=== PATIENT | female | born 1965 ===

== ENCOUNTER 2019-03-15 07:26 | Day surgery (SDC) | payer OTHER ==
[2019-03-13 11:20] VITALS: BMI 43.0
--- NOTE | 2019-03-15 08:33 | HP ---
Satellite [facility] - Chief Complaint Chief Complaint: right hand pain, numbness, weakness History of Present Illness: right CTS and Cubital Tunnel Syndrome History Source: Patient Limitations to Obtaining History: No Limitations - Past Medical History Allergies/Adverse Reactions: Allergies Allergy/AdvReac Type Severity Reaction Status Date / Time aspirin Allergy Severe ANAPHYLACTI Verified 03/15/19 08:28 C Penicillins Allergy Severe ANAPHYLACTI Verified 03/15/19 08:28 C Sulfa (Sulfonamide Allergy Intermediate Hives Verified 03/15/19 08:28 Antibiotics) NUTS Allergy Severe ANAPHYLACTI Uncoded 03/15/19 08:28 C ...LMP: 02/22/19 - Current Medications Current Medications: Home Medications Medication Instructions Recorded Albuterol Sulfate [Albuterol 8.5 gm IH PRN 03/13/19 Sulfate Hfa] Ergocalciferol [Vitamin D2] 50,000 unit PO WEEKLY 03/13/19 Ferrous Sulfate [Slow Fe] 142 mg PO DAILY 03/13/19 Satellite Physical Exam - Physical Examination Vital Signs: Vital Signs Period Temp Pulse Resp BP Sys/Russell Pulse Ox Last 24 Hr 98.0 F 79 20 142/77 97 General Appearance: Well Nourished ENT: Clear Lung: Clear to auscultation Heart: Regular rate & rhythm Breasts: Soft Abdomen: Soft Extremities: No edema Satellite Impression/Plan - Impression/Plan Impression: right CTS and Cubital Tunnel Syndrome Operative Procedure: right CTR and Subcutaneous Ulnar Nerve Transposition Date to be Performed: 03/15/19
[2019-03-15] MEDS ORDERED: ROPIVACAINE HCL 0.5% 30ML VIAL ONE (09:01)
[2019-03-15] MEDS ORDERED: DEXAMETHASONE SOD PHOSPHATE/PF 10 MG/ML SDV ONE (09:01)
[2019-03-15] MEDS ORDERED: MIDAZOLAM HCL 2 MG/2 ML SINGLE DOSE VIAL ONE ×2 (09:02)
[2019-03-15] MEDS ORDERED: BUPIVACAINE HCL/PF 0.5% (5 MG/ML) 30 ML VIAL IJ ONE (09:42)
[2019-03-15] MEDS ORDERED: LIDOCAINE HCL 1%, 10 MG/ML (20ML VIAL) ONE (09:42)
[2019-03-15] MEDS ORDERED: PROPOFOL 20 ML ONE (09:47)
[2019-03-15] MEDS ORDERED: LIDOCAINE HCL/PF 2% SDV 5ML VIAL ONE (09:48)
[2019-03-15] MEDS ORDERED: DEXAMETHASONE SOD PHOSPHATE 4 MG/1 ML VIAL ONE (09:48)
[2019-03-15] MEDS ORDERED: CLINDAMYCIN PHOSPHATE 600 MG/4 ML VIAL IVPB ONE (10:09)
[2019-03-15] MEDS ORDERED: oxyCODONE HCL 5 MG TABLET PO PRN (11:17)
[2019-03-15] MEDS ORDERED: ONDANSETRON 4 MG/2 ML VIAL IVPUSH PRN (11:17)
[2019-03-15] MEDS ORDERED: LACTATED RINGERS SOLUTION 1,000 ML IV SCH (11:30)
--- NOTE | 2019-03-15 11:36 | OP ---
Operative Note - Note: Operative Date: 03/15/19 Pre-Operative Diagnosis: right Cubital tunnel and CTS Operation: right subcutaneous ulnar nerve transposition, CTR, tenosynovectomy Post-Operative Diagnosis: Same as Pre-op Surgeon: Larry Bush Hand Rigger: Navneet Sanchez (BUDDY Kaiser 2nd Assist) Anesthesiologist/PST SUPERVISOR: Jules Victor Anesthesia: General, Local Specimens Removed: tenosynovium Estimated Blood Loss (mls): 0 Blood Volume Replaced (mls): 0 Fluid Volume Replaced (mls): 1,000 Operative Report Dictated: Yes
[2019-03-15 13:02] VITALS: TEMP 97.5
[2019-03-15 13:31] VITALS: BP 140/83; PULSE 75
--- NOTE | 2019-03-15 16:35 | SPEC ---
DATE OF OPERATION: 03/15/2019 PREOPERATIVE DIAGNOSIS: Right cubital tunnel syndrome and carpal tunnel syndrome. POSTOPERATIVE DIAGNOSIS: Right cubital tunnel syndrome and carpal tunnel syndrome. PROCEDURE: Right subcutaneous ulnar nerve transposition, right carpal tunnel release, and tenosynovectomy. SURGEON: Larry Bush MD HYDRAULIC PRESS SERVICER: Latoya aLra MD SECOND HYDRAULIC PRESS SERVICER: BUDDY Kaiser ANESTHESIA: DAWNA Rausch. LMA anesthesia, local injection of 20 mL 0.5% Marcaine, 1% lidocaine mix. DRAINS: None. COMPLICATIONS: None. SPECIMENS: Tenosynovium, right wrist. INDICATION FOR PROCEDURE: This patient is a 53-year-old female with a preoperative diagnosis of severe right cubital tunnel and carpal tunnel syndrome. After understanding the potential risks, complications, alternatives, and benefits to surgery versus nonsurgical treatment, the patient elected to undergo this procedure. The patient understands she may have permanent nerve damage, which may manifest itself as continued numbness and a lack of relief of her symptoms. It is even possible symptoms could get worse. She understands this and other potential risks and complications, which were discussed in great detail, and has elected to go forward with the surgery. DESCRIPTION OF PROCEDURE: The patient was brought to the operating room. Peripheral IV placed. IV sedation given, 2 g of IV Ancef was given. LMA anesthesia was induced. A tourniquet was applied to the right upper arm and the right upper extremity was prepped and draped in sterile fashion. The entire case was done under 3.8 loupe magnification. A marking pen was utilized to fouzia out a longitudinal incision in an already existing skin crease. Twenty mL of 0.5% Marcaine mixed with 1% Lidocaine was injected in and around the surgical incision. The right upper extremity was elevated, exsanguinated with an Esmarch bandage and the tourniquet inflated to 250 mmHg. A No. 15 scalpel blade was utilized to cut down through the skin. Subcutaneous hemostasis was achieved with the bipolar cautery. Dissection was done through the superficial palmar fascia. Self-retaining retractors were placed into the wound. Under direct visualization, the transverse carpal ligament was transected with a No. 15 scalpel blade, exposing the median nerve and the contents of the carpal tunnel. The distal and proximal extents of the release were completed with a Littler scissor and checked with irrigation and my small finger. They were seen to be complete. Limited dissection was done on the radial side of the median nerve and more extensive dissection was done on the ulnar side of the median nerve. The patients nerve was seen to be quite compressed by epineurium and therefore a limited epineurotomy was performed. A Ragnell retractor was used to gently retract the median nerve in a radial direction. The patient had a lot of tenosynovitis and therefore a tenosynovectomy was performed off all 9 flexor tendons. This was passed off the field as tenosynovium right wrist. The floor of the carpal tunnel was checked. There were no abnormal masses or ganglion cysts. The area was copiously irrigated and washed out and closure begun. Undyed 4-0 Vicryl was used to close the deep dermal layer. Final skin reapproximation was done with horizontal mattress 4-0 nylon sutures. The area was then washed and dried, covered with Xeroform, 4x4s, fluffs between the fingers, Webril and a 4-inch plaster roll was utilized to make a volar splint, which was then wrapped with Joao and Coban. The tourniquet was taken down after a total tourniquet time of 15 minutes. There were no complications during the case. The patient tolerated the procedure well and was brought to the ambulatory recovery room in stable condition. The entire case was done under 3.8 loupe magnification. A marking pen was utilized to fouzia out a longitudinal incision in an already existing skin crease. Twenty mL of 0.5% Marcaine mixed with 1% Lidocaine were injected in and around the surgical incision. The right upper extremity was elevated, exsanguinated with an Esmarch bandage, and the tourniquet inflated to 250 mmHg. A No. 15 scalpel blade was utilized to cut down through the skin. Subcutaneous hemostasis was achieved with the bipolar cautery. Dissection was done through the superficial palmar fascia. Self-retaining retractors were placed into the wound. Under direct visualization, the transverse carpal ligament was transected with a No. 15 scalpel blade, exposing the median nerve and the contents of the carpal tunnel. The distal and proximal extents of the release were completed with a Littler scissor and checked with irrigation and my small finger. They were seen to be complete. Limited dissection was done on the radial side of the median nerve and more extensive dissection was done on the ulnar side of the median nerve. The patients nerve was seen to be quite compressed by epineurium and therefore, a limited epineurotomy was performed. A Ragnell retractor was used to gently retract the median nerve in a radial direction. The patient had a lot of tenosynovitis and therefore, a tenosynovectomy was performed off all 9 flexor tendons. This was passed off the field as tenosynovium, right wrist. The floor of the carpal tunnel was checked. There were no abnormal masses or ganglion cysts. The area was copiously irrigated and washed out and closure begun. Undyed 4-0 Vicryl was used to close the deep dermal layer. Final skin reapproximation was done with horizontal mattress 4-0 nylon sutures. The area was then washed and dried, covered with Xeroform, 4x4s, Fluffs between the fingers, Webril and a 4-inch plaster roll was utilized to make a volar splint, which was then wrapped with Joao and Coban. A curvilinear incision was marked out over the medial aspect of the medial epicondyle of the right elbow. Next, a mixture of 10 mL of 0.50% Marcaine and 1% lidocaine was injected in and around the surgical incision. The incision was made with a No. 15 scalpel blade. Subcutaneous hemostasis was achieved with the bipolar cautery. Dissection was done with the Metzenbaum scissors, cauterizing along the way. Weitlaner retractors were placed into the wound. Dissection was done down through the fat layer, cauterizing vessels, exposing the medial epicondyle. The anterior flap was raised underneath the adipose layer for later transposition. The medial epicondyle was exposed. First, the ulnar nerve was identified more proximally around the triceps. The ulnar nerve was severely compressed at the level of the cubital tunnel at Edge's ligament, and there was even an accessory head of the triceps going down into the cubital tunnel causing compression. A circumferential dissection was done and a Minnie drain was placed around it. Next, in a methodical fashion, circumferential dissection was done moving more distally, freeing up the ulnar nerve from surrounding soft tissue. The roof of the cubital tunnel was released. This was quite tight and the Edge's ligament between the two heads of the FCU muscle was also identified and opened. There was one point of compression around the medial intramuscular septum. This was also decompressed with a No. 15 scalpel blade. I transposed the nerve. There were no points of compression. I completed the release distally and proximally with my index finger. I again transposed it. It looked good distally and proximally with no points of compression and the pressure was released. The area was copiously irrigated and washed out. Next, using 2-0 Vicryl suture, I tacked down the deep adipose layer to the medial epicondyle with the ulnar nerve transposed anterior to the axis of rotation of the medial epicondyle. I was able to floss the ulnar nerve. There were no points of compression. I then put in other 2-0 Vicryl sutures to hold the transposition position. It was checked along the way. It looked good. The adipose flap was held in place with 2-0 Vicryl sutures, 2-0 Vicryl was then used to close the more superficial adipose layer, 4-0 undyed Vicryl was used to close the deep dermal layer. Final skin reapproximation was done with a running subcuticular 3-0 Biosyn. Suture was then covered with Steri-Strips, posterior splint. A 5-inch Ortho-Glass posterior splint was applied, wrapped with Joao and Ronny bandages. The tourniquet was taken down after a total tourniquet time of 64 minutes. There were no complications during the case. The patient tolerated the procedure quite well and was brought to the ambulatory recovery room in stable condition. LATOYA LARA M.D. [id number]
--- NOTE | 2019-03-16 16:36 | PATH ---
Surgical Pathology Report Patient Name: SHEREE [facility]. Rec. #: [id number] /Age/Gender: 1965 (Age: 53) / F Account: [id number] Location: [facility] SURGICAL Taken: 03/15/2019 Received: 03/15/2019 Reported: 03/16/2019 Physicians: Navneet Sanchez M.D. Specimen(s) Received RIGHT HAND TENOSYNOVIUM Clinical History Right hand cubital tunnel syndrome and carpel tunnel syndrome Final Diagnosis RIGHT HAND TENOSYNOVIUM, EXCISION: TENOSYNOVIAL TISSUE WITH FOCAL FIBROSIS. Electronically Signed Ivis Corley M.D. Gross Description Received in formalin, labeled "right hand tenosynovium" are multiple white, irregular portions of soft tissue measuring 1.5 x 1.5 x 0.2cm in aggregate . The specimen is submitted in toto in one cassette. KIN/03/15/2019 ayah/03/15/2019
== END 2019-03-15 13:45 | disposition home or self-care (01) ==
LOC: JASU-SURG 07:26
PROVIDERS: ATTEND Orthopaedic Surgery
PROC: 0LB70ZZ Excision of Right Hand Tendon, Open Approach (ICD-10-PCS; 2019-03-15)
PROC: 01N50ZZ Release Median Nerve, Open Approach (ICD-10-PCS; principal; 2019-03-15 10:22)
PROC: 01N40ZZ Release Ulnar Nerve, Open Approach (ICD-10-PCS; 2019-03-15 10:22)
DX: G56.01 Carpal tunnel syndrome, right upper limb (principal); G56.21 Lesion of ulnar nerve, right upper limb; M65.841 Other synovitis and tenosynovitis, right hand
CPT/HCPCS: 84703; 88304-TC; 94760

== ENCOUNTER 2023-03-07 08:57 | Emergency (ER) | payer OTHER ==
[2023-03-07 09:03] VITALS: RESP 18; BMI 40.7
[2023-03-07] MEDS ORDERED: morphine CARPU-JECT 4 MG/1 ML DISP.SYRIN IVPUSH ONE ×2 (09:30→12:44)
[2023-03-07] MEDS ORDERED: ONDANSETRON 4 MG/2 ML VIAL IVPB ONE (09:30)
[2023-03-07] MEDS ORDERED: SODIUM CHLORIDE 0.9% 500 ML INFUS.BAG IV ONE (09:31)
[2023-03-07] MEDS ORDERED: ONDANSETRON 4 MG/2 ML VIAL ONE (10:41)
[2023-03-07] MEDS ORDERED: morphine SULFATE 4 MG/ML VIAL ONE ×2 (10:41→12:46)
[2023-03-07 10:47] LABS: BASO % 0.8 % (0-2.0); EOS % 3.1 % (0-4.5); HEMATOCRIT 36.1 % (32.4-45.2); HEMOGLOBIN 11.7 GM/dL (10.7-15.3); LYMPH % 17.8 % (8-40); MCH 22.8 pg (25.7-33.7); MCHC 32.5 g/dl (32.0-36.0); MEAN PLT VOLUME 7.8 fl (7.5-11.1); MONO % 6.2 % (3.8-10.2); NEUT % 72.1 % (42.8-82.8); PLATELET COUNT 247 10^3/uL (134-434); RBC 5.16 M/mm3 (3.60-5.2); RDW 16.4 % (11.6-15.6)
[2023-03-07 11:36] LABS: POTASSIUM 4.7 mmol/L (3.5-5.1)
[2023-03-07 11:39] LABS: ALBUMIN 3.6 g/dl (3.4-5.0); BLOOD UREA NITROGEN 15.7 mg/dL (7-18)
[2023-03-07 11:42] LABS: CREATININE 0.6 mg/dL (0.55-1.3)
[2023-03-07 11:43] LABS: BILIRUBIN,TOTAL 0.3 mg/dL (0.2-1)
[2023-03-07 11:44] LABS: TOT PROT 7.2 g/dl (6.4-8.2)
[2023-03-07] MEDS ORDERED: ACETAMINOPHEN 1000 MG/100 ML BAG IVPB ONE (11:54)
[2023-03-07] MEDS ORDERED: ACETAMINOPHEN INJECTION 100 ML IVPB ONE (12:05)
[2023-03-07 12:22] LABS: URINE APPEARANCE CLEAR; URINE BILIRUBIN NEGATIVE (NEGATIVE); URINE COLOR YELLOW; URINE GLUCOSE (UA) NEGATIVE (NEGATIVE); URINE KETONE NEGATIVE (NEGATIVE); URINE LEUK ESTERASE NEGATIVE (NEGATIVE); URINE NITRITE NEGATIVE (NEGATIVE); URINE PROTEIN NEGATIVE (NEGATIVE); URINE UROBILINOGEN 0.2 mg/dL (0.2-1.0)
[2023-03-07 15:12] VITALS: BP 144/74; PULSE 84; TEMP 98.4
== END 2023-03-07 14:30 | disposition home or self-care (01) ==
LOC: JER 08:57
PROC: 3E033NZ Introduction of Analgesics, Hypnotics, Sedatives into Peripheral Vein, Percutaneous Approach (ICD-10-PCS; principal; 2023-03-07)
PROC: 3E033GC Introduction of Other Therapeutic Substance into Peripheral Vein, Percutaneous Approach (ICD-10-PCS; 2023-03-07)
PROC: 3E033GC Introduction of Other Therapeutic Substance into Peripheral Vein, Percutaneous Approach (ICD-10-PCS; 2023-03-07)
PROC: 3E033GC Introduction of Other Therapeutic Substance into Peripheral Vein, Percutaneous Approach (ICD-10-PCS; 2023-03-07)
DX: M54.50 Low back pain, unspecified (principal); R10.9 Unspecified abdominal pain; R35.0 Frequency of micturition; R11.0 Nausea
CPT/HCPCS: 36415; 74176-TC; 80053; 81003; 85025; 99284-25